=== PATIENT | male | born 1985 | race Caucasian/White ===

== ENCOUNTER 2022-07-05 11:59 | Emergency (ER) | payer OTHER ==
--- NOTE | 2022-07-05 12:36 | ED Physician Documentation ---
PD HPI LOWER EXT INJURY - Stated complaint Stated Complaint: LT LEG PX - Chief complaint Chief Complaint: Ext Problem - History obtained from History obtained from: Patient - History of Present Illness PD HPI LOW EXT INJURY LOCATION: Left, Knee, Thigh Type of injury: No: Fall, Twist, Blunt / blow (he does not recall a particular injury to the thigh but states where he works he does lean thighs/legs against metal ledge below the stove/sink area.) Where injury occurred: Work Timing - onset: How many weeks ago Timing - duration: Weeks (1) Timing - details: Gradual onset (noted to have some tenderness anterior left thigh that has increasingly worse.), Still present (worse the past day or so.) Worsened by: Palpating Associated symptoms: Swelling (nonlinear, winding area of firm tubular firmness under skin anterior left thigh. Also small lump medial left thigh.), Discolored (some redness). No: Weakness, Numbness Similar symptoms before: Has not had sx before (has had lower leg swelling and tenderness in calf couple years ago and Dx with DVT. was on DOAC for 3 months and then was doing better, so PMD stopped the anticoag. Patient had been doing well. Current symptoms in the thigh are different.) Recently seen: Not recently seen Review of Systems Constitutional: denies: Fever, Chills Nose: denies: Rhinorrhea / runny nose, Congestion Throat: denies: Sore throat Cardiac: denies: Chest pain / pressure, Pedal edema Respiratory: denies: Dyspnea, Cough Skin: denies: Abrasion (s), Laceration (s) PD PAST MEDICAL HISTORY - Past Medical History Past Medical History: Yes Cardiovascular: Deep vein thrombosis Respiratory: None Neuro: None Endocrine/Autoimmune: None GI: None : None HEENT: None Psych: Depression, Anxiety Musculoskeletal: None Derm: None - Past Surgical History Past Surgical History: No - Present Medications Home Medications: Ambulatory Orders Medication Instructions Recorded Confirmed Escitalopram Oxalate 20 mg PO DAILY 07/05/22 07/05/22 Escitalopram Oxalate 20 mg PO DAILY 30 Days #30 tablet 07/05/22 - Allergies Allergies/Adverse Reactions: Allergies Allergy/AdvReac Type Severity Reaction Status Date / Time No Known Drug Allergies Allergy Verified 07/05/22 12:16 - Social History Does the pt smoke?: Yes Smoking Status: Current every day smoker Does the pt drink ETOH?: Yes ETOH Use: Beer Does the pt have substance abuse?: Yes Substance Use and Type: Marijuana - Immunizations Immunizations are current?: Yes PD ED PE NORMAL - Vitals Vital signs reviewed: Yes - General General: Alert and oriented X 3, Well developed/nourished - Cardiac Cardiac: RRR, No murmur - Respiratory Respiratory: Clear bilaterally - Abdomen Abdomen: Soft, Non tender - Derm Derm: Normal color, Warm and dry - Extremities Extremities: Other (no calf tenderness. No lower leg edema. Medial knee with nontender small lump feeling like varicosity. Left anterior thigh with tubular firm tenderness serpentine pattern under skin in palm sized area. Feels likely phlebitis. ) - Neuro Neuro: Alert and oriented X 3, No motor deficit, No sensory deficit, Normal speech Results - Vitals Vitals: Vital Signs - 24 hr 07/05/22 07/05/22 12:17 14:20 Temperature 37.1 C 36.8 C Heart Rate 84 68 Respiratory 16 18 Rate Blood Pressure 130/74 127/67 O2 Saturation 99 99 Oxygen O2 Source Room air - Rads (name of study) duplex left leg Radiology: Prelim report reviewed (superficial phlebitis left anterior thigh. Small varicosity medial knee. No DVT. ), See rad report PD MEDICAL DECISION MAKING - ED course Complexity details: reviewed results, considered differential (clinically very tender superficial phlebitis anterior thigh. Can get U/S to eval for DVT. ), d/w patient Departure - Departure Disposition: 01 Home, Self Care Clinical Impression: Superficial phlebitis of left leg Condition: Stable Record reviewed to determine appropriate education?: Yes Instructions: ED Phlebitis Superficial Prescriptions: Escitalopram Oxalate 20 mg PO DAILY 30 Days #30 tablet Comments: The ultrasound did not show any deep vein clots. You do have superficial phlebitis on the left thigh and a small varicosity on the side of the knee. The superficial phlebitis is treated typically with anti-inflammatories such as naproxen or ibuprofen 2 to 3 tablets twice daily for the next 7 to 10 days. Add Tylenol every 4-6 hours if needed for pain. Warm moist towels or heating pad to the area periodically 2-3 times daily to help soften any surface clots and allow the body to better absorb them. Recheck if not improved well over the next several days to week. Recheck in a week if not fully resolved or in particular if you have increasing symptoms in particular of the lower leg that might suggest deeper vein progression. This would be fairly uncommon. I did send a prescription for your Lexapro to [facility] in [place]. Discharge Date/Time: 07/05/22 14:25
[2022-07-05] MEDS ORDERED: ACETAMINOPHEN 325 MG TABLET PO STA (13:06)
[2022-07-05] MEDS ORDERED: IBUPROFEN 800 MG TABLET PO STA (13:06)
--- NOTE | 2022-07-05 14:13 | Ultrasound Report ---
PROCEDURE: Duplex Ext Veins Left INDICATIONS: leg pain TECHNIQUE: Real-time imaging, as well as color and pulse Doppler interrogation, were performed of the lower extr emity deep veins from the inguinal ligament to the popliteal fossa. COMPARISON: None. FINDINGS: The deep veins are normally compressible, and free of intraluminal thrombus. Color and pu lse Doppler demonstrate normal phasic intraluminal flow. There is normal augmentation response to di stal compression maneuver. Filling defects are noted in a short segment of superficial vein along anterior aspect of left thigh. Adjacent soft tissue edema is seen. Varicose veins are noted in medial left knee and are compressibl e without intraluminal filling defects. IMPRESSION: 1. No evidence of DVT in visualized left lower extremity veins. 2. Superficial thrombophlebitis in anterior left thigh at patient's reported area of painful lump. 3. Varicose veins along medial aspect of left knee without thrombosis. Reviewed by: Leo Portillo MD on 07/05/2022 2:11 PM PDT Approved by: Leo Portillo MD on 07/05/2022 2:11 PM PDT Station ID: [id number]
[2022-07-05 14:25] VITALS: BP 127/67
== END 2022-07-05 14:25 | disposition home or self-care (01) ==
LOC: ED 11:59
DX: I80.3 Phlebitis and thrombophlebitis of lower extremities, unspecified (principal); F17.200 Nicotine dependence, unspecified, uncomplicated
CPT/HCPCS: 93971; 99282; 99284; A9270

== ENCOUNTER 2023-04-04 11:19 | Emergency (ER) | payer OTHER ==
[2023-04-04 11:36] VITALS: BP 126/71
--- NOTE | 2023-04-04 11:41 | ED Physician Documentation ---
History of Present Illness - Stated complaint Stated Complaint: LT LEG PX - Chief complaint Chief Complaint: Ext Problem - Additonal information Additional information: 37-year-old male presents emergency department for evaluation of 1 month left leg pain. He states that he developed a cluster of superficial vessels on the upper medial calf area that had become tender. He does have a history of superficial thrombophlebitis but no personal history of DVT. He has been trying ibuprofen and warm compress as well as compressive stockings without resolution of symptoms. Was seen about a year ago for similar. Patient has no recent surg abdi or travel. He is not anticoagulated and denies a hx of bleeding/clotting disorder. No falls or trauma. Pt reports a family history of DVT Review of Systems Constitutional: reports: Reviewed and negative Musculoskeletal: reports: Extremity pain. denies: Extremity swelling PD PAST MEDICAL HISTORY - Past Medical History Past Medical History: Yes Cardiovascular: Deep vein thrombosis Respiratory: None Neuro: None Endocrine/Autoimmune: None GI: None : None HEENT: None Psych: Depression, Anxiety Musculoskeletal: None Derm: None - Past Surgical History Past Surgical History: No - Present Medications Home Medications: Ambulatory Orders Medication Instructions Recorded Confirmed Escitalopram Oxalate 20 mg PO DAILY 07/05/22 07/05/22 Escitalopram Oxalate 20 mg PO DAILY 30 Days #30 tablet 07/05/22 - Allergies Allergies/Adverse Reactions: Allergies Allergy/AdvReac Type Severity Reaction Status Date / Time No Known Drug Allergies Allergy Verified 04/04/23 11:34 - Social History Does the pt smoke?: Yes Smoking Status: Current every day smoker Does the pt drink ETOH?: Yes Does the pt have substance abuse?: Yes - Immunizations Immunizations are current?: Yes PD ED PE NORMAL - General General: Alert and oriented X 3, No acute distress, Well developed/nourished - Cardiac Cardiac: RRR - Abdomen Abdomen: Normal bowel sounds, Soft, Non tender, Non distended - Derm Derm: Warm and dry - Extremities Extremities: No deformity, Other (Collection of firm, mildly tender, though not erythematous collection of blood vessels that are palpated on the left upper medial calf region. No posterior calf pain tenderness. No swelling of the leg. Neurovascularly intact. 2+ DP pulse.) - Neuro Neuro: Alert and oriented X 3 Eye Opening: Spontaneous Motor: Obeys Commands Verbal: Oriented GCS Score: 15 Results - Vitals Vitals: Vital Signs - 24 hr 06/28/23 11:27 Temperature 36.9 C Heart Rate 85 Respiratory 20 Rate Blood Pressure 126/71 O2 Saturation 99 Oxygen O2 Source Room air - Rads (name of study) US DVT Relevant Findings:: Final report received (Superficial thrombosis of medial varicosities. No DVT in the visualized lower extremity) PD Medical Decision Making - ED course Complexity details: reviewed results, re-evaluated patient, d/w patient ED course: 37-year-old male here for evaluation of possible DVT as he has had some left medial calf varicosities that have become firm and tender over the last month. No surrounding erythema. He does have a history of superficial thrombophlebitis but reports a strong family history of DVT. Was seen in June 2022 for similar. Ultrasound today does show a superficial thrombosis of the medial varicosities in the left leg but no evidence of DVT. I discussed this finding with the patient and making the recommendation that he obtain referral to vascular surgeo n for longer-term evaluation and management of his apparent varicosities in the lower leg which seem to cause recurrent thrombophlebitis. I did make the recommendation for warm compress as well as ibuprofen. The usual emergent return precautions for worsening symptoms was discussed. Departure - Departure Disposition: 01 Home, Self Care Clinical Impression: Superficial thrombophlebitis of leg Qualifiers: Laterality: left Qualified Code(s): I80.02 - Phlebitis and thrombophlebitis of superficial vessels of left lower extremity Condition: Stable Record reviewed to determine appropriate education?: Yes Instructions: ED Phlebitis Superficial Comments: The ultrasound of your leg shows a superficial thrombosis of the medial varicosities of the area and concern. However there is no deep vein thrombosis. I recommend that you continue warm compress for 10 minutes 3 times a day. Elevating the leg at night will be helpful as where is continuing the compression stockings. You can take ibuprofen 600 mg with food 2-3 times a day or alternate with Tylenol for discomfort. Because you seem to be having recurrent superficial thrombosis of your varicose veins in your leg I do recommend you ask for referral to vascular surgery. There may be sclerosing, laser or other therapies that can help prevent recurrences of these issues. Return to the ER if you have significant left leg swelling, any chest pain or shortness of air.
--- NOTE | 2023-04-04 13:31 | Ultrasound Report ---
PROCEDURE: Duplex Ext Veins Left INDICATIONS: left medical calf varicosities; r/o dvt TECHNIQUE: Real-time imaging, as well as color and pulse Doppler interrogation, were performed of the lower extr emity deep veins from the inguinal ligament to the popliteal fossa. COMPARISON: None. FINDINGS: The deep veins are normally compressible, and free of intraluminal thrombus. Color and pu lse Doppler demonstrate normal phasic intraluminal flow. There is normal augmentation response to di stal compression maneuver. Superficial thrombosis of the medial calf varicosities. IMPRESSION: Superficial thrombosis of medial varicosities. No DVT in the visualized lower extremity. Reviewed by: Neel Castañeda on 04/04/2023 1:30 PM PDT Approved by: Neel Castañeda on 04/04/2023 1:30 PM PDT Station ID: [id number]
== END 2023-04-04 13:50 | disposition home or self-care (01) ==
LOC: ED 11:19
DX: I80.02 Phlebitis and thrombophlebitis of superficial vessels of left lower extremity (principal); F17.200 Nicotine dependence, unspecified, uncomplicated; Z86.718 Personal history of other venous thrombosis and embolism
CPT/HCPCS: 99283; 99284

== ENCOUNTER 2023-09-19 11:38 | Outpatient (CLI) | payer OTHER ==
[2023-09-19 14:36] LABS: BASOPHILS # (AUTO) 0.1 10^3/uL (0.0-0.1); BASOPHILS % (AUTO) 0.7 %; EOSINOPHILS # (AUTO) 0.2 10^3/uL (0.0-0.7); EOSINOPHILS % (AUTO) 3.1 %; HCT - HEMATOCRIT 48.3 % (42.0-52.0); HGB - HEMOGLOBIN 15.9 g/dL (14.0-18.0); LYMPHOCYTES # (AUTO) 1.9 10^3/uL (1.5-3.5); LYMPHOCYTES % (AUTO) 25.8 %; MEAN CORPUSCULAR HEMOGLOBIN 29.3 pg (27.0-31.0); MEAN CORPUSCULAR HGB CONC 32.9 g/dL (32.0-36.0); MEAN CORPUSCULAR VOLUME 89.1 fL (80.0-94.0); MEAN PLATELET VOLUME 11.9 fL (7.4-11.4); MONOCYTES # (AUTO) 0.6 10^3/uL (0.0-1.0); MONOCYTES % (AUTO) 8.1 %; NEUTROPHILS # (AUTO) 4.7 10^3/uL (1.5-6.6); PLT - PLATELET COUNT 169 10^3/uL (130-450); RED BLOOD COUNT 5.42 10^6/uL (4.70-6.10); RED CELL DISTRIBUTION WIDTH 13.2 % (12.0-15.0); WHITE BLOOD COUNT 7.5 x10^3/uL (4.8-10.8)
[2023-09-19 14:49] LABS: ALBUMIN 4.4 g/dL (3.2-5.5); ALBUMIN/GLOBULIN RATIO 1.7 (1.0-2.2); ALKALINE PHOSPHATASE 66 IU/L (42-121); ALT ALANINE AMINOTRANSFERASE 28 IU/L (10-60); AST ASPARTATE AMINOTRANSFERASE 20 IU/L (10-42); BILIRUBIN,TOTAL 0.4 mg/dL (0.2-1.0); BUN - BLOOD UREA NITROGEN 14 mg/dL (6-20); CALCIUM 9.2 mg/dL (8.5-10.3); CARBON DIOXIDE - CO2 30 mmol/L (21-32); CHLORIDE 105 mmol/L (101-111); CHOL/HDL RATIO 3.3 (<5.0); CHOLESTEROL 184 mg/dL; GFR - MDRD 84 (>89); GLUCOSE 101 mg/dL (74-104); HDL CHOLESTEROL 55 mg/dL; LDL CHOLESTEROL,CALCULATED 108 mg/dL; POTASSIUM 4.3 mmol/L (3.5-4.5); SODIUM 138 mmol/L (135-145); TRIGLYCERIDES 103 mg/dL (48-352); VLDL CHOLESTEROL 21 mg/dL
[2023-09-19 20:17] LABS: ESTIMATED AVERAGE GLUCOSE 105 mg/dL (70-100); HEMOGLOBIN A1c% 5.3 % (4.27-6.07)
== END 2023-09-19 11:39 | disposition home or self-care (01) ==
LOC: LAB.S 11:38
PROVIDERS: ATTEND Physician Assistant Medical
DX: Z13.9 Encounter for screening, unspecified (principal)
CPT/HCPCS: 36415; 80053; 80061; 83036; 83721; 85025

== ENCOUNTER 2024-02-25 08:00 | Outpatient (CLI) | payer OTHER ==
--- NOTE | 2024-02-25 12:47 | XRAY Report ---
PROCEDURE: Ankle 3+V LT INDICATIONS: LEFT ANKLE STRAIN TECHNIQUE: 3 views of the ankle were acquired. COMPARISON: None. FINDINGS: Bones: No fractures or dislocations. Ankle mortise is normally aligned. No suspicious bony lesions . Soft tissues: No tibiotalar joint effusion. Achilles tendon appears normal. IMPRESSION: No acute bony abnormality. Reviewed by: Neel Castañeda MD on 02/25/2024 12:45 PM PDT Approved by: Neel Castañeda MD on 02/25/2024 12:45 PM PDT Station ID: [id number]
== END 2024-02-25 23:59 | disposition home or self-care (01) ==
LOC: DI.S 08:00
PROVIDERS: ATTEND Physician Assistant Medical
DX: S96.812A Strain of other specified muscles and tendons at ankle and foot level, left foot, initial encounter (principal)